=== PATIENT | male | born 1985 | race African-American/Black ===

== ENCOUNTER 2018-12-25 20:14 | Emergency (ER) | payer OTHER ==
[~2018-12-25] VITALS: Ht 172.7 cm; Wt 83.0 kg
[2018-12-25 20:30] VITALS: BP 128/66
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
[2018-12-25] MEDS ORDERED: ROBAXIN500 MG PO (20:54)
[2018-12-25] MEDS ORDERED: IBUPROFEN600 MG ORAL (20:54)
--- NOTE | 2018-12-25 21:03 | NUR ---
ED Nurse Note: Pt cleared by health care Provider for discharge. DC instructions/prescription was given and explained to pt and verbalized understanding of teachings. All medical deviecs such as ID band removed. Pt is AAO x4, ambulatory and left with all personal belongings.
== END 2018-12-25 21:00 | disposition home or self-care (01) ==
LOC: EMR 20:40
DX: S39.012A Strain of muscle, fascia and tendon of lower back, initial encounter (principal); V47.5XXA Car driver injured in collision with fixed or stationary object in traffic accident, initial encounter; Y92.411 Interstate highway as the place of occurrence of the external cause
CPT/HCPCS: 99282